=== PATIENT | male | born 1975 | race Two or more races ===

== ENCOUNTER 2017-06-11 03:13 | Emergency (ER) | payer OTHER ==
[~2017-06-11] VITALS: Ht 180.3 cm; Wt 106.6 kg
[2017-06-11 04:34] LABS: Urine WBC None Seen /hpf (0 - 3)
[2017-06-11 04:41] LABS: Urine Bacteria NONE SEEN /hpf (None Seen); Urine Blood Negative /uL (Negative); Urine Specific Gravity 1.029 (1.001-1.035)
[2017-06-11 07:15] VITALS: BP 155/98
== END 2017-06-11 07:25 | disposition home or self-care (01) ==
LOC: ER 03:22
DX: M54.12 Radiculopathy, cervical region (principal); F41.1 Generalized anxiety disorder
CPT/HCPCS: 70450; 71010; 72040; 81001; 93005